=== PATIENT | male | born 1990 | race Caucasian/White ===

== ENCOUNTER 2016-12-09 09:14 | Emergency (ER) | payer BC ==
[2016-12-09 09:18] VITALS: TEMP 99.2
[2016-12-09 11:16] VITALS: BP 117/88; PULSE 72; RESP 12; O2SAT 97
== END 2016-12-09 10:25 | disposition home or self-care (01) ==
LOC: ED 09:14
DX: F41.0 Panic disorder [episodic paroxysmal anxiety] (principal)
CPT/HCPCS: 99283

== ENCOUNTER 2016-12-31 16:20 | Emergency (ER) | payer BC ==
[2016-12-31 16:41] VITALS: RESP 18; TEMP 98.8
[2016-12-31 17:50] LABS: BASOPHILS % (AUTO) 1 % (0-3); EOSINOPHILS % (AUTO) 1 % (0-9); HEMATOCRIT 44 % (39-53); MEAN CORPUSCULAR HGB CONC 35.2 gm/dl (32.0-36.0); MONOCYTES % (AUTO) 4.6 % (0-12); NEUTROPHILS % (AUTO) 61.3 % (37-80)
[2016-12-31 17:52] LABS: MEAN CORPUSCULAR VOLUME 79 fL (80-100)
[2016-12-31 17:54] VITALS: BP 140/87; PULSE 88; O2SAT 98
[2016-12-31 18:05] LABS: APPEARANCE,URINE Clear; BILIRUBIN,URINE NEGATIVE (NEGATIVE); COLOR,URINE Yellow; GLUCOSE, URINE (UA) NEGATIVE (NEGATIVE); KETONES,URINE NEGATIVE (NEGATIVE); LEUKOCYTE ESTERASE ,URINE NEGATIVE (NEGATIVE); NITRATE,URINE NEGATIVE (NEGATIVE); OCCULT BLOOD,URINE NEGATIVE (NEG-TRACE); PH,URINE 5.5; UROBILINOGEN,URINE 0.2 (0.2-1.0 EU)
[2016-12-31 18:09] LABS: AMPHETAMINES NEGATIVE (NEGATIVE); METHADONE NEGATIVE (NEGATIVE); OPIATES(OP13) NEGATIVE (NEGATIVE); OXYCODONE(OXY) NEGATIVE (NEGATIVE); PROPOXYPHENE(PPX) NEGATIVE (NEGATIVE); TRICYCLIC ANTIDEPRESSANTS NEGATIVE (NEGATIVE)
[2016-12-31 18:13] LABS: RBC,URINE NEG (0-3AV/HPF); WBC,URINE 0-2 (0-5AV/HPF)
[2016-12-31 18:15] LABS: ALBUMIN 3.8 gm/dl (3.4-5.0); ALT 42 IU/L (14-63); CALCIUM 8.4 mg/dl (8.5-10.1); GLOM FILT RATE 92 mL/min (>60); POTASSIUM 3.8 mMol/L (3.5-5.1); SODIUM 136 mMol/L (136-145); THYROID STIMULATING HORMONE 2.661 uU/ml (0.358-3.740)
== END 2016-12-31 19:38 | disposition short-term general hospital (02) ==
LOC: ED 16:20
DX: R45.851 Suicidal ideations (principal); F32.9 Major depressive disorder, single episode, unspecified
CPT/HCPCS: 36415; 80053; 80305; 80307; 81001; 84443; 85025; 99284

== ENCOUNTER 2017-02-02 02:08 | Emergency (ER) | payer BC ==
[2017-02-02 02:53] VITALS: BP 153/91; PULSE 87; RESP 18; O2SAT 99
[2017-02-02 03:01] VITALS: TEMP 97.7
== END 2017-02-02 03:21 | disposition home or self-care (01) ==
LOC: SUPCPDRO 02:08 → ED 02:08
DX: H92.01 Otalgia, right ear (principal)
CPT/HCPCS: 99282